=== PATIENT | male | born 1955 | race Hispanic/Latino ===

== ENCOUNTER 2018-03-15 18:33 | Emergency (ER) | payer MEDICARE, SELFPAY ==
[2018-03-15] MEDS ORDERED: Nitroglycerin 2% Ointment 1 INCH/1 GM Packet ONE (18:45)
[2018-03-15 18:54] LABS: #Basophils 0.1 thou/uL (0.0-0.2); #Eosinphils 0.5 thou/uL (0.0-0.7); #Lymphocytes 2.1 thou/uL (1.20-3.40); #Monocytes 0.9 thou/uL (0.11-0.59); %Basophils 1.4 % (0.0-1.0); %Eosinophils 5.8 % (0.0-10.0); %Lymphocytes 24.3 % (21.0-51.0); %Monocytes 10.7 % (0.0-10.0); %Neutrophils 57.9 % (42.0-75.0); Mean Corpuscular HGB CONC 32.2 g/dL (32.0-36.0); Mean Corpuscular Hemoglobin 29.9 pg (27.0-31.0); Mean Corpuscular Volume 92.9 fL (78.0-98.0); Mean Platelet Volume 9.3 fL (7.4-10.4); Platelet Count 242 thou/uL (130-400); RBC Distribution Width 11.9 % (11.5-14.5); Red Blood Cell (RBC) Count 5.01 mill/uL (4.70-6.10); White Blood Cell (WBC) Count 8.6 thou/uL (4.8-10.8)
[2018-03-15] MEDS ORDERED: Labetalol HCl 100 MG/20 ML VIAL ONE (19:00)
[2018-03-15 19:01] LABS: PTT 28.6 SEC (22.9-36.1)
[2018-03-15 19:06] LABS: ALT (SGPT) 36 U/L (8-55); AST (SGOT) 25 U/L (5-34); Albumin 4.5 g/dL (3.5-5.0); Alkaline Phosphatase 56 U/L (40-150); Anion Gap 17 mmol/L (10-20); BUN (Urea Nitrogen) 14 mg/dL (8.4-25.7); Bilirubin, Total 0.4 mg/dL (0.2-1.2); Calc. Creatinine Clearance 0 mL/min (70-130); Calcium 9.4 mg/dL (7.8-10.44); Carbon Dioxide 23 mmol/L (22-29); Chloride 101 mmol/L (98-107); Estimated GFR-MDRD 64; Globulin 3.9 g/dL (2.4-3.5); Glucose 90 mg/dL (70-105); Potassium 3.2 mmol/L (3.5-5.1); Protein, Total 8.4 g/dL (6.0-8.3); Sodium 138 mmol/L (136-145)
[2018-03-15 19:08] LABS: CKMB 1.8 ng/mL (0-6.6); Prothrombin Time 12.9 SEC (12.0-14.7); Troponin I 0.027 ng/mL (< 0.028)
--- NOTE | 2018-03-15 19:56 | CT ---
HEAD CT WITHOUT CONTRAST 03/15/18 COMPARISON: None. HISTORY: Left sided weakness and slurred speech, evaluate for acute infarction. TECHNIQUE: Axial CT imaging at 5 mm intervals from vertex through skull base without contrast. Coronal and sagit emilia reformatted imaging obtained. FINDINGS: There is mild mucosal thickening involving the left maxillary sinus and the bilateral ethmoid air sander ls. There is no displaced calvarial fracture. There is scattered areas of atherosclerotic calcificati on including the region of the distal M1 segment on the right, bilateral cavernous carotid arteries, the distal vertebral arteries and the proximal basilar artery. No intracranial hemorrhage, midline sh ift or mass effect. IMPRESSION: No intracranial hemorrhage. Results called to Dr. Perez at 7:01 p.m., 03/15/18. Code CR POS: [id number]
== END 2018-03-15 19:28 | disposition short-term general hospital (02) ==
LOC: MADERS 18:33
DX: I63.9 Cerebral infarction, unspecified (principal); I10 Essential (primary) hypertension; E78.5 Hyperlipidemia, unspecified
CPT/HCPCS: 70450; 80053; 82553; 84484; 85025; 85610; 85730; 93005; 94760; J2997; 96365; 96375